=== PATIENT | male | born 1985 | race Caucasian/White ===

== ENCOUNTER → 2018-06-24 12:18 | Outpatient (CLI) | payer OTHER, SELFPAY | PROVIDERS: Visit Provider Nurse Practitioner Acute Care | DX: R10.9 Unspecified abdominal pain (principal); R11.2 Nausea with vomiting, unspecified; R53.1 Weakness ==

== ENCOUNTER → 2018-06-25 08:41 | Outpatient (CLI) | payer OTHER, SELFPAY ==
[2018-06-25 10:43] LABS: C-Reactive Protein Quant < 0.5 mg/dL (<1.0)
[2018-06-25 10:56] LABS: Carcinoembryonic Antigen 1.5 ng/mL (0.1-3.0)
== END ==
PROVIDERS: Visit Provider Nurse Practitioner Acute Care
DX: R10.9 Unspecified abdominal pain (principal); R11.2 Nausea with vomiting, unspecified
CPT/HCPCS: 36415; 82378; 86140; 86677; 87015; 87045; 87147; 87427; 87899

== ENCOUNTER → 2018-09-29 19:32 | Outpatient (REF) | payer OTHER, SELFPAY ==
[2018-09-29 20:06] LABS: Alanine Aminotransferase 48 IU/L (21-72); Albumin 4.7 g/dL (3.5-5.0); Albumin Globulin Ratio 1.8 (1.0-2.8); Alkaline Phosphatase 68 U/L (38-126); Aspartate Aminotransferase 39 IU/L (17-59); BUN Creatinine Ratio 16.3 (6-22); Bilirubin Total 0.7 mg/dL (0.2-1.3); Blood Urea Nitrogen 13 mg/dL (9-20); Calcium 9.5 mg/dL (8.4-10.2); Carbon Dioxide 23 mmol/L (22-32); Chloride 100 mmol/L (98-107); Estimated Glomerular Filt Rate > 60.0 mL/min (>60); Globulin 2.6 g/dL (1.7-4.1); Glucose 89 mg/dL (70-100); HEMOLYSIS 23 (0-50); Sodium 135 mmol/L (137-145); Total Protein 7.3 g/dL (6.3-8.2)
[2018-09-29 20:12] LABS: Add Manual Diff / Slide Review NO; Basophils Absolute Auto 0 /uL (0-100); Basophils Percent Auto 0.4 % (0-2); Eosinophils Absolute Auto 200 /uL (0-450); Eosinophils Percent Auto 1.8 % (2-4); Hematocrit 49.5 % (41-53); Hemoglobin 16.8 g/dL (13.5-17.5); Lymphocytes Absolute Auto 2300 /uL (1100-4500); Lymphocytes Percent Auto 25.1 % (25-40); Mean Corpuscular Hemoglobin 32.6 PG (26-34); Mean Corpuscular Volume 95.8 fL (80-100); Monocytes Absolute Auto 900 /uL (0-900); Monocytes Percent Auto 9.4 % (3-14); Neutrophils Absolute Auto 5900 /uL (1500-7000); Neutrophils Percent Auto 63.3 % (50-75); Platelet Count 296 X10^3/uL (150-400); Red Blood Cell Count 5.16 X10^6/uL (4.5-5.9); Red Cell Distribution Width 13.4 % (11.6-14.8); White Blood Cell Count 9.4 X10^3/uL (4.5-11.0)
[2018-09-29 20:22] LABS: T4 Total Thyroxine 7.32 ug/dL (5.5-11.0)
[2018-09-29 20:27] LABS: Hemoglobin A1C% w Est Avg Glu 5.1 % (4.0-6.0)
[2018-09-29 20:36] LABS: Thyroid Stimulating Hormone 1.41 uIU/mL (0.47-4.68)
[2018-09-29 20:43] LABS: Erythrocyte Sedimentation Rate 1 MM/HR (0-15)
[2018-10-01 14:05] LABS: Thyroid Peroxidase Antibodies 1 IU/mL (< 9)
[2018-10-02 19:49] LABS: Triiodothyronine T3 Total 108 ng/dL (76-181)
== END ==
LOC: LAB 19:32
PROVIDERS: Visit Provider Nurse Practitioner Acute Care
DX: R53.81 Other malaise (principal); R10.9 Unspecified abdominal pain; E04.9 Nontoxic goiter, unspecified; R63.4 Abnormal weight loss; R63.0 Anorexia
CPT/HCPCS: 80053; 83036; 84436; 84443; 84480; 85025; 85651; 86376

== ENCOUNTER → 2018-10-27 09:32 | Outpatient (CLI) | payer OTHER, SELFPAY ==
--- NOTE | 2018-10-27 | DI.RAD.S_ITS ---
PROCEDURE: FL UPPER GI SMALL BOWEL INDICATIONS: GERD/VOMITING/GASTRIC DISTENTION COMPARISON: None. FINDINGS: KUB: Preprocedural career development specialist film shows a normal bowel gas pattern. No suspicious abdominal calcifications. Visualized solid organ contours appear normal in size. No suspicious bony abnormalities. Esophagus: Air-contrast views demonstrate a normal mucosal pattern. On single-contrast views, there is normal peristalsis. No fixed strictures, extrinsic mass effects, or diverticula. No hiatal hernias or elicited gastroesophageal reflux. There is normal transit of a calibrated barium tablet through the esophagus. Stomach: The gastric lumen is normally distensible. The gastric rugal folds appear normal in thickness. There is focal pooling of contrast in the gastric cardia suggesting a gastric ulcer. The pylorus and duodenal bulb have a normal morphology. Small bowel: Duodenal folds appear normal in thickness. There is normal transit time of barium through the small intestine. Small bowel loops appear normal in caliber throughout. Jejunal and ileal folds are smooth and normal in thickness. No strictures, intraluminal masses, or extrinsic mass effects. The terminal ileum is identified and appears normal. IMPRESSION: 1. Focal pooling of contrast in the gastric cardia suggesting a gastric ulcer. 2. Normal esophagus. No gastroesophageal reflux elicited during the exam. 3. Normal small bowel follow-through. Dictated by: Akhil Gutierrez M.D. on 10/28/2018 at 7:48 Approved by: Akhil Gutierrez M.D. on 10/28/2018 at 7:55
== END ==
PROVIDERS: Visit Provider Nurse Practitioner Acute Care
DX: K21.9 Gastro-esophageal reflux disease without esophagitis (principal); R11.10 Vomiting, unspecified; K31.89 Other diseases of stomach and duodenum
CPT/HCPCS: 74245

== ENCOUNTER → 2019-11-12 13:45 | Outpatient (CLI) | payer OTHER, SELFPAY ==
--- NOTE | 2019-11-12 13:53 | DI.RAD.S_ITS ---
PROCEDURE: XR KNEE RT 3V INDICATIONS: Swelling, pain TECHNIQUE: 3 views of the knee were acquired. COMPARISON: None. FINDINGS: Bones: No fractures or dislocations. No suspicious bony lesions. Soft tissues: Small joint effusion. No suspicious soft tissue calcifications. IMPRESSION: Small joint effusion. If the patient's pain or other symptoms persist, consider further evaluation with MRI Dictated by: Joni Heller M.D. on 11/12/2019 at 15:14 Approved by: Joni Heller M.D. on 11/12/2019 at 15:15
== END ==
PROVIDERS: Referring Provider Nurse Practitioner; Visit Provider Nurse Practitioner
DX: M23.91 Unspecified internal derangement of right knee (principal); M25.561 Pain in right knee; M25.461 Effusion, right knee
CPT/HCPCS: 73562